=== PATIENT | female | born 1990 | race Caucasian/White ===

== ENCOUNTER 2017-02-02 17:13 | Emergency (ER) | payer OTHER ==
[2017-02-02] MEDS ORDERED: ACETAMINOPHEN TAB 325 MG TAB PO STA (18:20)
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
[2017-02-02 19:24] VITALS: RESP 18
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
--- NOTE | 2017-02-02 20:00 | XR ---
EXAMINATION TYPE: XR clavicle LT DATE OF EXAM: 02/02/2017 CLINICAL HISTORY: pain COMPARISON: NONE TECHNIQUE: 2 views of the left clavicle are obtained. FINDINGS: There is no acute fracture/dislocation evident. The acromioclavicular and glenohumeral francisca int spaces appear within normal limits. The visualized ribs are intact and unremarkable. IMPRESSION: 1. There is no acute fracture or dislocation. ICD 10 NO FRACTURE, INITIAL EVALUATION
[2017-02-02] MEDS ORDERED: ACET/COD 300 MG/30 MG STARTER PACK 6 TAB BTL PO STA (20:02)
[2017-02-02 20:23] VITALS: BP 101/58; PULSE 74; TEMP 97.6
== END 2017-02-02 20:22 | disposition home or self-care (01) ==
LOC: EC 17:13
DX: S40.012A Contusion of left shoulder, initial encounter (principal); S09.90XA Unspecified injury of head, initial encounter; F32.9 Major depressive disorder, single episode, unspecified; Z79.899 Other long term (current) drug therapy; Z79.891 Long term (current) use of opiate analgesic; V48.5XXA Car driver injured in noncollision transport accident in traffic accident, initial encounter; Y92.410 Unspecified street and highway as the place of occurrence of the external cause
CPT/HCPCS: 70450; 72125; 99284